=== PATIENT | female | born 1965 | race Caucasian/White ===

== ENCOUNTER 2018-11-04 07:30 | Emergency (ER) | payer MEDICAID, SELFPAY ==
[2018-11-04 07:32] VITALS: BP 164/86; PULSE 81; RESP 18; TEMP 36.6; O2SAT 96; BMI 57.9
[2018-11-04] MEDS: 0.9% Normal Saline 1,000 ML 1000 ML IV (08:57)
[2018-11-04] MEDS: DiphenhydrAMINE 50 MG/ML Syringe 25 MG IV (08:57)
[2018-11-04] MEDS: Metoclopramide 10 MG/2 ML Vial IV (08:58)
[2018-11-04 09:00] VITALS: BP 144/78; BP 151/113; BP 171/109; PULSE 85; PULSE 86
[2018-11-04 09:09] LABS: Bacteria 0 SEEN /hpf (None Seen); Mucous, Urine 0 SEEN /hpf (<or=2+)
[2018-11-04 09:11] LABS: Color, Urine Yellow (Yellow); Glucose, Dipstick Normal (Normal); Ketone-Dipstick Negative (Negative); Leukocyte Esterase-Dipstick 25 /ul (Negative); Nitrite-Dipstick Negative (Negative); Occult Blood-Urine 10 /ul (Negative); Protein-Dipstick Negative (Negative); Urine Bilirubin Dipstick Negative (Negative); Urine Clarity Sl. Cloudy (Clear); Urine Urobilinogen Normal (Normal)
[2018-11-04 09:14] LABS: Absolute Lymphocyte Count 1.38 X10^3/ul (0.83-4.51); Absolute Neutrophil Count 6.5 X10^3/uL (2.0-7.7); Basophil# 0.03 X10^3/uL; Basophil% 0.4 % (0-1); Eosinophil# 0.04 X10^3/uL; Eosinophils% 0.5 % (0-5); Hematocrit 46.9 % (37-47); Hemoglobin 15.4 g/dl (12.0-15.0); Lymphocyte # 1.38 X10^3/ul (4.0); Lymphocyte % 16.2 % (19-41); Mean Corp Hgb Conc 32.8 g/gl (32-36); Mean Corpuscular Hgb 28.8 pg (27.0-32.0); Mean Corpuscular Volume 87.8 fL (81-99); Mean Platelet Vol. 10.8 fl (6.2-12.0); Monocyte# 0.56 X10^3/uL; Monocyte% 6.6 % (0-10); Neutrophil # 6.49 X10^3/uL (2.7-7.7); Neutrophil % 76.2 % (47-70); Platelet Count 160 K/mm3 (150-450); RBC Distribution Width CV 13.4 % (11.6-14.6); RBC Distribution Width SD 43.2 fl (35.1-43.9); Red Blood Count 5.34 M/mm3 (4.2-5.4); White Blood Count 8.5 K/mm3 (4.4-11.0)
[2018-11-04 09:15] LABS: POSITIVE COUNT NO; POSITIVE DIFFERENTIAL NO; POSITIVE MORPHOLOGY NO
[2018-11-04 09:18] LABS: Red Blood Cells-Urine 0-5 SEEN /hpf (0-5); Squamous Epithelial Cells - UA 0-5 SEEN /hpf (5-10); White Blood Cells 0-5 SEEN /hpf (0-5)
[2018-11-04 09:26] LABS: BUN 14 mg/dL (7-18); BUN/Creat Ratio 17.7 RATIO (10-20); Creatinine, Serum 0.79 mg/dL (0.55-1.02); EST Glomerular Filtration Rate 81 mL/min (>60); Est Glom Filt Rate - Afr Amer 98 mL/min (>60); Estimated Creatinine Clearance 59.83 ml/min; Glucose 126 mg/dL (74-106)
[2018-11-04 09:27] LABS: Anion Gap 9 (5-15); Calcium,Total 9.1 mg/dL (8.5-10.1); Chloride 107 mmol/L (98-107); Potassium 3.8 mmol/L (3.5-5.1); Sodium Level 141 mmol/L (136-145)
--- NOTE | 2018-11-04 10:06 | ED.VISSUMM ---
- ER Visit Summary Date of Service: 11/04/18 Chief Complaint: [Headache] History of Present Illness: The patient is a 52 F [presents to the emergency department complaint of headache that started yesterday. Patient states that Started in the back of her neck and kind of went up to the back of her head and into her face. Patient states that she was seen at urgent care couple days ago for sore throat and had a strep screen that was negative. This morning patient had emesis and 5 episodes of watery stool. She denies any abdominal pain. Patient denies any falls or head injuries. Patient does have a history of hypothyroidism but she is had some allergic type reactions to the levothyroxine and [place] Thyroid therefore she is currently seeing an black topper and has had some blood work in attempt to assess what they can use to treat her thyroid issues with. Patient also felt somewhat short of breath this morning. She does not have much of a cough. She does have a history of asthma.] Physical Examination: [HEENT-PERRLA, EOMI. Cranial nerves II through XII grossly intact. TMs clear. Mucous membranes moist. No adenopathy. Cardiovascular-regular rate and rhythm without murmur or ectopy Lungs-clear to auscultation, chest wall stable without crepitus or subcu emphysema Abdomen-normoactive bowel sounds, soft, nontender, no rebound or rigidity, no peritoneal signs. Extremities-intact ?4, normal range of motion, normal pulses, atraumatic CBC with differential showed a white count of 8.5, hemoglobin] Test Results: [15, platelets 160. Chemistries were normal. Influenza screen was negative. Urinalysis was normal.] Emergency Department Course and Treatment: [Patient was given a liter normal same fluid bolus and was medicated with Reglan and Benadryl. Patient felt significantly improved. At this point I suspect patient likely has a viral syndrome.] Treatment Plan: [Patient advised to push fluids and I will write her a prescription for antiemetic. Patient to follow-up with her primary care physician within next 3-5 days.] Disposition: [Discharged home in stable condition] Impression: [Viral syndrome] This note was generated with [employer] dictation software. It may contain incorrect words, spelling, and punctuation that were not noted in review of the chart prior to signing ED Disposition - Plan for ED Patient: Referrals: Michael Dotson III, MD [Primary Care Provider] -
--- NOTE | 2018-11-04 10:09 | ED.DCSUM_ITS ---
- ER Visit Summary Date of Service: 11/04/18 Chief Complaint: [Headache] History of Present Illness: The patient is a 52 F [presents to the emergency department complaint of headache that started yesterday. Patient states that Started in the back of her neck and kind of went up to the back of her head and into her face. Patient states that she was seen at urgent care couple days ago for sore throat and had a strep screen that was negative. This morning patient had emesis and 5 episodes of watery stool. She denies any abdominal pain. Patient denies any falls or head injuries. Patient does have a history of hypothyroidism but she is had some allergic type reactions to the levothyroxine and [place] Thyroid therefore she is currently seeing an charge account clerk and has had some blood work in attempt to assess what they can use to treat her thyroid issues with. Patient also felt somewhat short of breath this morning. She does not have much of a cough. She does have a history of asthma.] Physical Examination: [HEENT-PERRLA, EOMI. Cranial nerves II through XII grossly intact. TMs clear. Mucous membranes moist. No adenopathy. Cardiovascular-regular rate and rhythm without murmur or ectopy Lungs-clear to auscultation, chest wall stable without crepitus or subcu e mphysema Abdomen-normoactive bowel sounds, soft, nontender, no rebound or rigidity, no peritoneal signs. Extremities-intact ?4, normal range of motion, normal pulses, atraumatic CBC with differential showed a white count of 8.5, hemoglobin] Test Results: [15, platelets 160. Chemistries were normal. Influenza screen was negative. Urinalysis was normal.] Emergency Department Course and Treatment: [Patient was given a liter normal same fluid bolus and was medicated with Reglan and Benadryl. Patient felt significantly improved. At this point I suspect patient likely has a viral syndrome.] Treatment Plan: [Patient advised to push fluids and I will write her a prescription for antiemetic. Patient to follow-up with her primary care physician within next 3-5 days.] Disposition: [Discharged home in stable condition] Impression: [Viral syndrome] This note was generated with [employer] software. It may contain incorrect words, spelling, and punctuation that were not noted in review of the chart prior to signing ED Disposition - Plan for ED Patient: Referrals: Michael Dotson III, MD [Primary Care Provider] -
--- NOTE | 2018-11-04 10:09 | ED.DEP ---
ED Disposition - Plan for ED Patient: Instructions: ED Viral Syndrome Prescriptions: Ondansetron [Zofran Odt] 4 mg PO Q8H PRN PRN #10 tab PRN Reason: Nausea Referrals: Michael Dotson III, MD [Primary Care Provider] - 3-5 Days
== END 2018-11-04 11:13 | disposition home or self-care (01) ==
LOC: ED 08:26
PROVIDERS: Emergency Provider Emergency Medicine; Family Provider Family Medicine; PCP Family Medicine
DX: B34.9 Viral infection, unspecified (principal); J02.9 Acute pharyngitis, unspecified; R11.2 Nausea with vomiting, unspecified; R19.7 Diarrhea, unspecified; R51 Headache; M79.10 Myalgia, unspecified site; R06.02 Shortness of breath; R53.83 Other fatigue; J45.909 Unspecified asthma, uncomplicated; E03.9 Hypothyroidism, unspecified
CPT/HCPCS: 80048; 81001; 85025; 87804; 96361; 96374; 96375; 99284; A4216

== ENCOUNTER 2019-04-16 11:59 | Emergency (ER) | payer MEDICAID, SELFPAY ==
[2019-04-16 12:00] VITALS: BP 151/87; PULSE 92; RESP 19; TEMP 36.7; O2SAT 95; BMI 56.7
--- NOTE | 2019-04-16 12:18 | RAD_ITS ---
STUDY: X-RAY CHEST REASON FOR EXAM: Female, 53 years old. Wheezing and trouble breathing TECHNIQUE: PA and lateral views of the chest. COMPARISON: September 18, 2014 chest x-ray FINDINGS: Interstitial markings are minimally prominent lung bases improved since prior study. There is no demonstrated pleural abnormality. There is borderline cardiomegaly. Normal mediastinum and cristi. Normal visualized pulmonary arteries. Normal visualized aortic arch and descending thoracic aorta. Normal visualized thoracic spine. Normal visualized ribs, clavicles, and shoulders. There is no demonstrated abnormality of the visualized soft tissue structures of the upper abdomen. RAD/Chest PA and Lateral IMPRESSION: Lower lobe atelectasis no visualized acute focal infiltrate. Electronically Signed: Autumn Vale MD at 14:02 EDT Tel , Service support ,
--- NOTE | 2019-04-16 12:18 | EKG12_ITS ---
Test Reason : SOB Blood Pressure : / mmHG Vent. Rate : 075 BPM Atrial Rate : 075 BPM P-R Int : 152 ms QRS Dur : 076 ms QT Int : 374 ms P-R-T Axes : 051 007 021 degrees QTc Int : 417 ms Normal sinus rhythm Normal ECG Confirmed by RAGINI AVALOS, DELROY ([id number]), photography editor YURIDIA FRIEDMAN ([id number]) on 04/19/2019 10:39:49 AM Referred By: SERVANDO Confirmed By:DELROY EID MD
--- NOTE | 2019-04-16 12:19 | ED.DCSUM_ITS ---
- ER Visit Summary Date of Service: 04/16/19 Chief Complaint: Shortness of breath and wheezing History of Present Illness: The patient is a 53 F history of asthma, thyroid disease and reflex sympathetic dystrophy. States she has not felt well since last Wednesday. Had a cough of yellowish sputum and wheezing. Is concerned she may be anemic because her mom is been anemic before. She denies any melena. She does not have any history of anemia. She denies any chest pain except with coughing. No history of DVT or PE. No leg pain or swelling. No hemoptysis. No pleuritic chest pain. No recent travel or surgery. Denies any fever or chills. Has been treated in urgent care over the last week was placed on prednisone and uses an inhaler. She has not been on any antibiotics. Physical Examination: Middle-aged female. Vital signs are stable. Pulse ox 95% room air no signs of hypoxia. She does not look septic or toxic. She is audibly wheezing but no distress. HEENT exam normal. TMs normal. Posterior pharynx moist and pink no erythema. Neck nontender no JVD no lymphadenopathy. Lungs Tory wheezes bilaterally. No rales or rhonchi. Equal symmetrical. Heart regular rhythm rate about 90 no murmur. Abdomen obese but soft and nontender. Normal bowel sounds no peritoneal signs. Moving all 4 extremities. Calves nontender and no edema. Neurologically she is awake and alert. Test Results: Chest x-ray 2 view shows no acute abnormality. Normal cardiac silhouette. No pneumonia. No pulmonary edema. Given the films with the patient and her mom. EKG sinus rhythm rate of 75 with no acute abnormality. No CO or ischemia. No dysrhythmia. CBC normal. White count 5. Hemoglobin 14. Lites unremarkable normal BUN, creatinine and gap. Emergency Department Course and Treatment: Patient with shortness of breath and wheezing. Will be treated with DuoNeb and albuterol aerosols. Labs and a chest x-ray will be obtained. Repeat exam patient is doing well at 1348 PM. She still has some intermittent wheezing but is improved after aerosol treatments. Today was the last day of her oral steroids. Treatment Plan: Patient will be treated with prednisone 40 mg once a day for the next 10 days. Follow-up if not improving. Continue her aerosol treatments and inhaler. Disposition: Discharge Impression: Acute dyspnea with wheezing Viral bronchitis or bronchospasm This note was generated with [employer] dictation software. It may contain incorrect words, spelling, and punctuation that were not noted in review of the chart prio r to signing ED Disposition - Plan for ED Patient: Referrals: Michael Dotson III, MD [Primary Care Provider] -
[2019-04-16] MEDS: Albuterol 2.5 MG/3 ML VIAL.NEB. INHALATION (12:38)
[2019-04-16] MEDS: Ipratropium/Albuterol Sulfate 3 ML AMPUL.NEB INHALATION (12:38)
[2019-04-16 12:39] VITALS: PULSE 87; RESP 18
[2019-04-16 12:52] VITALS: BP 171/132; PULSE 93; RESP 20; TEMP 36.7; O2SAT 96
[2019-04-16 12:55] VITALS: O2SAT 96
[2019-04-16 13:26] LABS: Absolute Neutrophil Count 2.6 X10^3/uL (2.0-7.7); Basophil# 0.03 X10^3/uL; Basophil% 0.5 % (0-1); Eosinophil# 0.07 X10^3/uL; Eosinophils% 1.3 % (0-5); Hematocrit 45.8 % (37-47); Hemoglobin 14.5 g/dL (12.0-15.0); Lymphocyte % 41.1 % (19-41); Mean Corp Hgb Conc 31.7 g/dL (32-36); Mean Corpuscular Hgb 28.1 pg (27.0-32.0); Mean Corpuscular Volume 88.8 fL (81-99); Mean Platelet Vol. 10.5 fl (6.2-12.0); Monocyte# 0.54 X10^3/uL; Monocyte% 9.6 % (0-10); NRBC Flagged by Analyzer 0 % (0-5); Neutrophil # 2.63 X10^3/uL (2.7-7.7); Platelet Count 146 K/mm3 (150-450); RBC Distribution Width CV 13.2 % (11.6-14.6); RBC Distribution Width SD 43.2 fl (35.1-43.9); Red Blood Count 5.16 M/mm3 (4.2-5.4); White Blood Count 5.6 K/mm3 (4.4-11.0)
[2019-04-16 13:39] LABS: Anion Gap 9 (5-15); BUN 15 mg/dL (7-18); BUN/Creat Ratio 20.6 RATIO (10-20); Calcium,Total 8.4 mg/dL (8.5-10.1); Chloride 105 mmol/L (98-107); Creatinine, Serum 0.73 mg/dL (0.55-1.02); EST Glomerular Filtration Rate 89 mL/min (>60); Est Glom Filt Rate - Afr Amer 107 mL/min (>60); Estimated Creatinine Clearance 64.02 ml/min; Glucose 78 mg/dL (74-106); Potassium 3.4 mmol/L (3.5-5.1); Sodium Level 145 mmol/L (136-145)
--- NOTE | 2019-04-16 13:50 | ED.DEP ---
ED Disposition - Plan for ED Patient: Disposition: Home or Assisted Living Instructions: BRONCHITIS with Wheezing (Adult) Prescriptions: Prednisone [Deltasone] 40 mg PO DAILY 10 Days tab Prescription Printed Azithromycin [Zithromax Z-Terry] 250 mg PO UD #1 box Prescription Printed Referrals: Michael Dotson III, MD [Primary Care Provider] - 1 Week if not improving Additional Instructions: Prednisone 40 mg once a day for the next 10 days. May stop if resolves. Continue your aerosol treatments and inhaler at home. Return if feeling worse
[2019-04-16 14:06] VITALS: BP 94/60; PULSE 86; RESP 18
== END 2019-04-16 14:44 | disposition home or self-care (01) ==
PROVIDERS: Emergency Provider Emergency Medicine; Family Provider Family Medicine; PCP Family Medicine
DX: J20.8 Acute bronchitis due to other specified organisms (principal); R06.00 Dyspnea, unspecified; R06.2 Wheezing; J45.909 Unspecified asthma, uncomplicated; E03.9 Hypothyroidism, unspecified; G90.50 Complex regional pain syndrome I, unspecified
CPT/HCPCS: 71046; 80048; 85025; 93005; 94640; 99285; A4216

== ENCOUNTER → 2020-10-16 12:07 | Outpatient (CLI) | payer MEDICAID, SELFPAY ==
--- NOTE | 2020-10-16 13:32 | NEURO ---
NCS and/or EMG Patient Report Ordering Doctor: Alex Bradshaw DATE OF SERVICE: 10/16/20 Veronica Leblanc presents for electrodiagnostic testing of the lower limbs. She reports numbness and tingling in both legs. Electrodiagnostic findings: Peroneal motor nerve demonstrates normal distal latency, amplitude and conduction velocity bilaterally. Normal tibial motor response bilaterally. Normal peroneal and tibial F waves. H reflex normal bilaterally. Sensory responses are within normal limits. On needle EMG, all muscles tested in the lower limbs, as well as the lumbar paraspinals, showed no evidence of denervation with normal motor unit action potentials. Electrodiagnostic assessment: This is a normal electrodiagnostic study of the lower limbs. There is no electrodiagnostic evidence for peripheral neuropathy or lumbosacral radiculopathy. If there are any further questions, please do not hesitate to contact me.
== END ==
PROVIDERS: PCP Family Medicine; Referring Provider Anesthesiology; Visit Provider Anesthesiology
DX: G90.521 Complex regional pain syndrome I of right lower limb (principal)
CPT/HCPCS: 95886; 95912